=== PATIENT | female | born 1955 | race Caucasian/White ===

== ENCOUNTER → 2019-03-13 | Outpatient (CLI) | payer OTHER ==
--- NOTE | 2019-03-13 16:57 | PCVCIMAG ---
APPROVED REPORT Study performed: 03/13/2019 15:01:27 EXAM: Comprehensive 2D, Doppler, and color-flow Echocardiogram Patient Location: Echo lab Status: routine BSA: 2.02 HR: 85 bpmBP: 164/104 mmHg Rhythm: NSR Other Information Study Quality: Adequate Risk Factors: Cardiac Risk Factors: HTN Indications Diabetes obstructive sleep apnea 2D Dimensions IVSd: 17.05 (7-11mm)LVOT Diam: 22.84 (18-24mm) LVDd: 38.57 mm PWd: 15.54 (7-11mm)Ascending Ao: 32.91 (22-36mm) LVDs: 28.48 (25-40mm) Left Atrium: 48.91 (27-40mm) Aortic Root: 29.74 mm LV Single Plane 4CH: 44.68 % LV Single Plane 2CH: 45.78 % Biplane EF: 44.3 % Volumes Left Atrial Volume (Systole) Single Plane 4CH: 72.62 mLSingle Plane 2CH: 85.81 mL LA ESV Index: 40.00 mL/m2 Aortic Valve AoV Peak Shola.: 2.19 m/s AO Peak Gr.: 19.24 mmHgLVOT Max P.42 mmHg AO Mean Gr.: 10.13 mmHgLVOT Mean P.35 mmHg AO V2 Mean: 1.51 m/sLVOT Max V: 1.05 m/s AO V2 VTI: 43.67 cmLVOT Mean V: 0.72 m/s JAKE (VTI): 2.16 [id number] VTI: 23.07 cm JAKE Vmax: 1.96 cm2 SV (LVOT): 94.46 mL Mitral Valve MV Peak Gr.: 16.01 mmHg MV Mean Gr.: 6.35 mmHgE/A Ratio: 0.6 MV Decel. Time: 411.73 ms MV E Max Shola.: 1.03 m/s MV A Shola.: 1.80 m/s MV Max Shola.: 2.00 m/s MV Mean Shola.: 1.15 m/s MV VTI: 372.24 mm MVA VTI: 253.77 mm2 MV PHT: 95.10 ms MVA (PHT): 2.31 cm2 Pulmonary Valve PV Peak Shola.: 1.13 m/sPV Peak Gr.: 5.13 mmHg Tricuspid Valve TR Peak Shola.: 2.49 m/s TR Peak Gr.: 24.77 mmHg Left Ventricle The left ventricle is normal size. There is normal LV segmental wall motion. Moderate concentric left ventricular hypertrophy. The left ventricular systolic function is normal. The left ventricular ejection fraction is within the normal range. LVEF is 55-60%. Mild diastolic dysfunction is present (impaired relaxation pattern). Right Ventricle The right ventricle is normal size. The right ventricular systolic function is normal. Atria Left atrium is mildly dilated. The right atrium size is normal. Aortic Valve Mild aortic valve sclerosis. Trace aortic regurgitation is present. There is mild aortic stenosis Calculated aortic valve area is 2.0 cm2 with maximum pressure gradient of 19 mmHg and mean pressure gradient of 10 mmHg. Mitral Valve The mitral valve leaflets are moderately calcified; mitral annular calcification Trace mitral regurgitation. Mild to moderate mitral stenosis with JAKE of 1.9 cm2 by PHT, peak gradient of 16 mmHg and mean gradient of 6.3 mmHg. Tricuspid Valve The tricuspid valve is normal in structure. Mild tricuspid regurgitation with PAP of 32 mmHg. Pulmonic Valve The pulmonary valve is normal in structure. There is no pulmonic valvular regurgitation. Great Vessels The aortic root is normal in size. IVC is normal in size and collapses >50% with inspiration. Pericardium There is no pericardial effusion. There is no pleural effusion. <Conclusion> The left ventricular systolic function is normal. There is normal LV segmental wall motion. Moderate concentric left ventricular hypertrophy. LVEF is 55-60%. Mild diastolic dysfunction. Left atrium is mildly dilated. There is mild aortic stenosis, no insufficiency Calculated aortic valve area is 2.0 cm2 with maximum pressure gradient of 19 mmHg and mean pressure gradient of 10 mmHg. The mitral valve leaflets are moderately calcified; mitral annular calcification. Trace mitral regurgitation. Mild to moderate mitral stenosis with JAKE of 1.9 cm2 by PHT, peak gradient of 16 mmHg and mean gradient of 6.3 mmHg. Mild tricuspid regurgitation with pulmonary artery pressure of 32 mmHg. There is no pericardial effusion.
== END | disposition home or self-care (01) ==
LOC: PCVCIMAG 14:57
PROVIDERS: ATTEND Internal Medicine
DX: I08.3 Combined rheumatic disorders of mitral, aortic and tricuspid valves (principal); E11.9 Type 2 diabetes mellitus without complications; I10 Essential (primary) hypertension; G47.33 Obstructive sleep apnea (adult) (pediatric)
CPT/HCPCS: 93306